=== PATIENT | male | born 1970 | race Caucasian/White ===

== ENCOUNTER 2017-11-22 09:41 | Emergency (ER) | payer OTHER ==
[2017-11-22] MEDS ORDERED: TYLENOL 325 MG PO STA (09:47)
[2017-11-22] MEDS ORDERED: Lactated Ringers 1,000 ML IV ONE ×2 (09:48→10:03)
[2017-11-22] MEDS ORDERED: DUONEB 0.5-3 MG/3 ml Neb IH ONE ×2 (09:48→10:00)
[2017-11-22] MEDS ORDERED: TYLENOL 325 MG ONE (10:03)
[2017-11-22 10:12] LABS: BASOPHIL % 0.5 % (0.0-0.4); Basophil (Absolute #) 0.04 (0-0.4); Eosinophil % 0.4 % (0.00-5.0); Eosinophil (Absolute #) 0.03 (0-0.5); Granulocyte Absolute (ANC) 5.92 (1.4-6.9); Granulocytes % 78.1 % (36.0-66.0); Hematocrit 47.4 % (42-50); Hemoglobin 15.3 gm/dl (12.5-18.0); Lymphocyte (Absolute #) 0.72 (1.0-4.6); Lymphocytes % 9.5 % (24.0-44.0); Mean Corpuscular Hemoglobin 31.9 pg (26-32); Mean Corpuscular Hgb Concent. 32.3 g/dl (32-36); Mean Platelet Volume 10.7 fl (6-9.5); Monocyte (Absolute #) 0.87 (0.0-1.3); Monocytes % 11.5 % (0.0-12.0); Platelet Count 246 K/mm3 (150-450); Red Blood Count 4.79 M/mm3 (4.1-5.6); Red Cell Distribution Width 13.5 % (11.5-14.0); White Blood Count 7.6 K/mm3 (4.0-10.5)
--- NOTE | 2017-11-22 10:31 | XRAY ---
Indication: Cough and short of breath. Comparison: January 14, 2011. PA/lateral chest remains hyperinflated and clear. Heart and mediastinal structures within normal limits. Bony thorax intact again with mild degenerative changes. Impression: Stable nonacute hyperinflated chest.
[2017-11-22 10:35] VITALS: BP 129/57
[2017-11-22 10:44] LABS: ALBUMIN 3.8 g/dL (3.4-5.0); ALKALINE PHOSPHATASE 74 U/L (46-116); ANION GAP 14.3 MEQ/L (5-15); BLOOD UREA NITROGEN 13 mg/dL (9-20); CHLORIDE 103 mEq/L (98-107); Calcium 8.9 mg/dL (8.5-10.1); Carbon Dioxide 25.8 mEq/L (21-32); Creatinine 1 1.22 mg/dl (0.55-1.30); EST GLOMERULAR FILTRATION RATE > 60 ML/MIN; Glucose 105 MG/DL (70-110); SGOT/AST 23 U/L (15-37); SGPT/ALT 34 U/L (12-78); SODIUM 139 mEq/L (136-145); Total Protein 7.1 gm/dL (6.4-8.2)
--- NOTE | 2017-11-22 11:10 | ERPHSYRPT ---
- History of Present Illness Time Seen by Provider: 11/22/17 09:43 Source: patient Patient Subjective Stated Complaint: PT REPORTS COUGH BEGINNING A FEW DAYS AGO- WORSENING WITH TIME-REPORTS ALL OVER BODY ACHES-LOW GRADE INTERMITTANT FEVER Triage Nursing Assessment: PT PINK WARM ET [id number] TO SPEAK IN COMPLETE SENTENCES-LUNGS CLEAR BILATERALLY-HARSH COUGH NOTED DURING TRIAGE WITH EPISODE OF SOB NOTED Physician History: CC: cough Hx: 47 y/o patient of Dr Tarango with cough for a few days, now fever, worsened myalgias. Headache and sore throat. No V/D. No rash. Has not taken any meds today. Healthy. Severity: moderate Allergies/Adverse Reactions: No Known Drug Allergies Allergy (Unverified 11/22/17 09:55) Hx Tetanus, Diphtheria Vaccination/Date Given: Yes Hx Influenza Vaccination/Date Given: No Hx Pneumococcal Vaccination/Date Given: No Immunizations Up to Date: No - Review of Systems Constitutional: Fever, Chills, Fatigue, Malaise, Weakness Eyes: No Symptoms Ears, Nose, & Throat: Throat Pain Respiratory: Cough, Dyspnea Cardiac: No Chest Pain Abdominal/Gastrointestinal: No Vomiting, No Diarrhea Genitourinary Symptoms: No Dysuria Musculoskeletal: Myalgias Skin: No Rash Neurological: Headache All Other Systems: Reviewed and Negative - Past Medical History Pertinent Past Medical History: No - Past Surgical History Past Surgical History: Yes Gastrointestinal: Appendectomy Musculoskeletal: Orthopedic Surgery - Social History Smoking Status: Current every day smoker How long have you smoked: YRS Exposure to second hand smoke: No Drug Use: none Patient Lives Alone: No - Nursing Vital Signs Nursing Vital Signs: Initial Vital Signs Temperature 99.4 F 11/22/17 09:45 Pulse Rate 125 H 11/22/17 09:45 Respiratory Rate 22 11/22/17 09:45 Blood Pressure 137/75 11/22/17 09:45 O2 Sat by Pulse Oximetry 96 11/22/17 09:45 Pain Scale Pain Intensity 5 - Physical Exam General Appearance: alert Eye Exam: PERRL/EOMI Ears, Nose, Throat Exam: normal ENT inspection, dry mucous membranes Neck Exam: normal inspection, non-tender, supple Respiratory Exam: diminished breath sounds, No crackles/rales Cardiovascular Exam: regular rate/rhythm, tachycardia Gastrointestinal/Abdomen Exam: soft, hernia (ventral, soft), No tenderness, No distention, No mass, No guarding Extremity Exam: normal inspection, normal range of motion Neurologic Exam: alert, oriented x 3, cooperative, sensation nml, No motor deficits Skin Exam: warm, dry, No rash SpO2 Interpretation: normal SpO2: 95 Oxygen Delivery: Room Air - Course Nursing assessment & vital signs reviewed: Yes EKG Interpreted by Me: RATE (113), Sinus Tach, Right Bundle Branch Block, Other (QTc 475) - Radiology Exams cxr X-ray Interpretation: Teleradiologist Report (stable nonacute hyperinflated chest) Ordered Tests: Active Orders 24 hr Category Date Time Status Clean Catch Urine Specimen STAT Care 11/22/17 09:46 Active EKG-ER Only STAT Care 11/22/17 09:46 Active IV Insertion STAT Care 11/22/17 09:46 Active Rectal Temperature STAT Care 11/22/17 09:47 Active CHEST 2 VIEWS (PA AND LAT) Stat Exams 11/22/17 09:47 Completed CBC W DIFF Stat Lab 11/22/17 09:56 Completed CMP Stat Lab 11/22/17 09:56 Completed Lactic Acid Stat Lab 11/22/17 09:56 Results UA W/ MICROSCOPIC Stat Lab 11/22/17 10:50 Completed Respiratory Nebulizer STAT RT 11/22/17 09:48 Completed Respiratory Nebulizer STAT RT 11/22/17 11:34 Active Medication Summary Discontinued Medications Generic Name Dose Route Start Last Admin Trade Name Freq PRN Reason Stop Dose Admin Acetaminophen 975 mg 11/22/17 09:47 11/22/17 10:10 Tylenol 325 Mg PO 11/22/17 09:48 975 mg STAT STA Administration Acetaminophen Confirm 11/22/17 10:03 Tylenol 325 Mg Administered 11/22/17 10:04 Dose 975 mg .ROUTE .STK-MED ONE Albuterol Sulfate 2.5 mg 11/22/17 11:33 Proventil 2.5 Mg/3 Ml Neb IH 11/22/17 11:34 STAT ONE Albuterol/Ipratropium 3 ml 11/22/17 09:48 11/22/17 10:03 Duoneb 0.5-3 Mg/3 Ml Neb IH 11/22/17 09:49 3 ml STAT ONE Administration Albuterol/Ipratropium Confirm 11/22/17 10:00 Duoneb 0.5-3 Mg/3 Ml Neb Administered 11/22/17 10:01 Dose 3 ml IH .STK-MED ONE Lactated Ringer's 1,000 mls @ 999 mls/hr 11/22/17 09:48 11/22/17 10:10 Lactated Ringers IV 11/22/17 10:48 999 mls/hr .Q1H1M ONE Administration Lactated Ringer's Confirm 11/22/17 10:03 Lactated Ringers Administered 11/22/17 10:04 Dose 1,000 mls @ ud IV .STK-MED ONE Lab/Rad Data: Laboratory Result Diagrams 11/22/17 09:56 11/22/17 09:56 Laboratory Results 11/22/17 11/22/17 11/22/17 Range/Units 10:50 09:56 09:56 WBC (4.0-10.5) K/mm3 RBC (4.1-5.6) M/mm3 Hgb (12.5-18.0) gm/dl Hct (42-50) % MCV (78-100) fl MCH (26-32) pg MCHC (32-36) g/dl RDW (11.5-14.0) % Plt Count (150-450) K/mm3 MPV (6-9.5) fl Gran % (36.0-66.0) % Lymphocytes % (24.0-44.0) % Monocytes % (0.0-12.0) % Eosinophils % (0.00-5.0) % Basophils % (0.0-0.4) % Basophils # (0-0.4) Sodium 139 (136-145) mEq/L Potassium 4.0 (3.5-5.1) mEq/L Chloride 103 (98-107) mEq/L Carbon Dioxide 25.8 (21-32) mEq/L Anion Gap 14.3 (5-15) MEQ/L BUN 13 (9-20) mg/dL Creatinine 1.22 (0.55-1.30) mg/dl Estimated GFR > 60 ML/MIN Glucose 105 (70-110) MG/DL Lactic Acid 2.0 (0.4-2.0) Calcium 8.9 (8.5-10.1) mg/dL Total Bilirubin 0.50 (0.2-1.0) mg/dL AST 23 (15-37) U/L ALT 34 (12-78) U/L Alkaline Phosphatase 74 (46-116) U/L Serum Total Protein 7.1 (6.4-8.2) gm/dL Albumin 3.8 (3.4-5.0) g/dL Ur Collection Type VOID Urine Color LUCIA (YELLOW) Urine Appearance CLOUDY (CLEAR) Urine pH 6.0 (5-6) Ur Specific [place] 1.020 (1.005-1.025) Urine Protein TRACE (Negative) Urine Ketones TRACE (NEGATIVE) Urine Blood NEGATIVE (0-5) Mart/ul Urine Nitrite NEGATIVE (NEGATIVE) Urine Bilirubin NEGATIVE (NEGATIVE) Urine Urobilinogen 1 (0-1) mg/dL Ur Leukocyte Esterase NEGATIVE (NEGATIVE) Urine Microscopic WBC 0-2 (0-5) /HPF Amorphous Crystals MANY (NEGATIVE) /HPF Urine Culture Reflexed NO (NO) Urine Glucose NEGATIVE (NEGATIVE) mg/dL Influenza Type A Ag (NEGATIVE) Influenza Type B Ag (NEGATIVE) RSV (PCR) (Negative) Specimen Received 11/22/17 1050 11/22/17 11/22/17 Range/Units 09:56 09:56 WBC 7.6 (4.0-10.5) K/mm3 RBC 4.79 (4.1-5.6) M/mm3 Hgb 15.3 (12.5-18.0) gm/dl Hct 47.4 (42-50) % MCV 99.0 (78-100) fl MCH 31.9 (26-32) pg MCHC 32.3 (32-36) g/dl RDW 13.5 (11.5-14.0) % Plt Count 246 (150-450) K/mm3 MPV 10.7 H (6-9.5) fl Gran % 78.1 H (36.0-66.0) % Lymphocytes % 9.5 L (24.0-44.0) % Monocytes % 11.5 (0.0-12.0) % Eosinophils % 0.4 (0.00-5.0) % Basophils % 0.5 (0.0-0.4) % Basophils # 0.04 (0-0.4) Sodium (136-145) mEq/L Potassium (3.5-5.1) mEq/L Chloride (98-107) mEq/L Carbon Dioxide (21-32) mEq/L Anion Gap (5-15) MEQ/L BUN (9-20) mg/dL Creatinine (0.55-1.30) mg/dl Estimated GFR ML/MIN Glucose (70-110) MG/DL Lactic Acid (0.4-2.0) Calcium (8.5-10.1) mg/dL Total Bilirubin (0.2-1.0) mg/dL AST (15-37) U/L ALT (12-78) U/L Alkaline Phosphatase (46-116) U/L Serum Total Protein (6.4-8.2) gm/dL Albumin (3.4-5.0) g/dL Ur Collection Type Urine Color (YELLOW) Urine Appearance (CLEAR) Urine pH (5-6) Ur Specific [place] (1.005-1.025) Urine Protein (Negative) Urine Ketones (NEGATIVE) Urine Blood (0-5) Mart/ul Urine Nitrite (NEGATIVE) Urine Bilirubin (NEGATIVE) Urine Urobilinogen (0-1) mg/dL Ur Leukocyte Esterase (NEGATIVE) Urine Microscopic WBC (0-5) /HPF Amorphous Crystals (NEGATIVE) /HPF Urine Culture Reflexed (NO) Urine Glucose (NEGATIVE) mg/dL Influenza Type A Ag POSITIVE (NEGATIVE) Influenza Type B Ag NEGATIVE (NEGATIVE) RSV (PCR) NEGATIVE (Negative) Specimen Received - Progress Progress Note: 11/22/17 11:35 FLU A positive. HR better. Breathing better. No sign of pneumonia or meningitis. Will release with symptom Rx. He chose tamiflu after discussion. Counseled pt/family regarding: lab results, diagnosis, need for follow-up, rad results - Departure Time of Disposition: 11:36 Departure Disposition: Home Clinical Impression: Influenza A Condition: Stable Critical Care Time: No Referrals: ADELINA TARANGO MD [Primary Care Provider] - Instructions: How to Use a Spacer, Flu, Adult (DC) Additional Instructions: UPPER RESPIRATORY INFECTIONS 1. The signs and symptoms of a cold may last up to 10 days. These illnesses are due to viruses which are not treatable with antibiotics. 2. The following suggestions can aid in recovery and to minimize symptoms: A. Increase fluid intake. B. Acetaminophen or Ibuprofen as directed. C. Avoid smoking environments as this will increase the risk of developing pneumonia. D. For children, may use a cool mist vaporizer in the child's room. 3. Contact your Family Physician if you note: A. Persisten fever >103 for more than 3 days B. Breathing difficulty C. Productive cough of yellow/green sputum D. Illness greater than 7 days E. Persistent vomiting F. Stiff neck Rx tamiflu. Rx albuterol MDI. Return for problems or concerns. Self home isolation and no work until fever free for 24 hours and improved. Prescriptions: Albuterol Sulfate [Albuterol Sulfate Hfa] 2 puff IH Q4-6HPRN PRN #1 [id number] PRN Reason: cough or wheeze Oseltamivir 75 mg [Tamiflu 75MG Capsule] 75 mg PO BID #10 cap
[2017-11-22 11:11] LABS: INFLUENZA A POSITIVE (NEGATIVE); INFLUENZA B NEGATIVE (NEGATIVE); RESPIRATORY SYNCTIAL VIRUS NEGATIVE (Negative)
[2017-11-22 11:12] LABS: Appearance CLOUDY (CLEAR); Leukocyte Esterase NEGATIVE (NEGATIVE); Nitrite NEGATIVE (NEGATIVE)
[2017-11-22 11:13] LABS: Bilirubin NEGATIVE (NEGATIVE); Blood NEGATIVE Ery/ul (0-5); Glucose NEGATIVE (NEGATIVE); Ketones TRACE (NEGATIVE); Protein,Urine Dip TRACE (Negative); Urobilinogen 1 mg/dL (0-1)
[2017-11-22 11:14] LABS: Amourphous Crystal MANY /HPF (NEGATIVE); WBC 0-2 /HPF (0-5)
[2017-11-22] MEDS ORDERED: PROVENTIL 2.5 MG/3 ML NEB IH ONE ×2 (11:33→11:36)
[2017-11-22 11:45] VITALS: PULSE 99; O2SAT 96
== END 2017-11-22 12:03 | disposition home or self-care (01) ==
LOC: ED 09:41
DX: J11.1 Influenza due to unidentified influenza virus with other respiratory manifestations (principal); R05 Cough; R50.9 Fever, unspecified; M79.1 Myalgia; R51 Headache; J02.9 Acute pharyngitis, unspecified; R53.83 Other fatigue
CPT/HCPCS: 36000; 36415; 71046; 80053; 81000; 83605; 85025; 87631; 93005; 94640; 96360; 99284; A9270-GY

== ENCOUNTER 2020-03-28 08:38 | Emergency (ER) | payer BC ==
[2020-03-28 08:55] VITALS: O2SAT 96
--- NOTE | 2020-03-28 08:55 | ERPHSYRPT ---
- History of Present Illness Time Seen by Provider: 03/28/20 08:54 Source: patient Exam Limitations: no limitations Physician History: 50 years old male presented in the ER with chief complaint of low back pain sudden onset after twisting/exertion while lawnmowing 2 days ago which was getting better, woke up this morning and lifted a 40 pound heavy box and pain came back, moderate to severe intensity, sharp shooting in nature, low back in the sacroiliac area with radiation to both buttocks, aggravated with movements/ ambulation and partial relief with being still. Denies any loss of bowel or bladder control. Denies any numbness tingling weakness of lower extremity. No perineal numbness. Patient also reports similar pain in the past with lifting and twisting. Timing/Duration: day(s) (2), intermittent, worse Method of Injury: lifting, twisted Quality: radiating, sharp Back Pain Location: lumbar spine, paraspinous muscles Back Pain Radiation: buttocks Severity of Pain-Max: severe Severity of Pain-Current: severe Modifying Factors: Improves With: immobilization, movement Associated Symptoms: denies symptoms Previous symptoms: same symptoms as today Allergies/Adverse Reactions: No Known Drug Allergies Allergy (Verified 03/28/20 08:55) Home Medications: Budesonide/Formoterol Fumarate [Budesonide-Formoterol 80-4.5] 1 inh PO UD PRN [History] Lisinopril/Hydrochlorothiazide [Lisinopril-Hctz 10-12.5 mg Tab] 1 each PO DAILY 03/28/20 [History] PANTOPRAZOLE 40 mg Tablet [Protonix 40MG Tablet] 40 mg PO QPM 03/28/20 [ History] Hx Tetanus, Diphtheria Vaccination/Date Given: Yes Hx Influenza Vaccination/Date Given: No Hx Pneumococcal Vaccination/Date Given: No Travel Risk - International Travel Have you traveled outside of the country in past 3 weeks: No Have you or anyone close to you been diagnosed with or: No Do your reside in a community with a known COVID-19 case?: Yes If Yes where:: [facility] - Review of Systems Constitutional: No Symptoms Eyes: No Symptoms Ears, Nose, & Throat: No Symptoms Respiratory: No Symptoms Cardiac: No Symptoms Abdominal/Gastrointestinal: No Symptoms Genitourinary Symptoms: No Symptoms Musculoskeletal: Back Pain Skin: No Symptoms Neurological: No Symptoms Psychological: No Symptoms Endocrine: No Symptoms Hematologic/Lymphatic: No Symptoms - Past Medical History Pertinent Past Medical History: No - Past Surgical History Past Surgical History: Yes Gastrointestinal: Appendectomy Musculoskeletal: Orthopedic Surgery - Social History Smoking Status: Current every day smoker How long have you smoked: YRS Exposure to second hand smoke: No Drug Use: none Patient Lives Alone: No - Nursing Vital Signs Nursing Vital Signs: Initial Vital Signs Temperature 98.1 F 03/28/20 08:45 Pulse Rate 84 03/28/20 08:45 Blood Pressure 119/79 03/28/20 08:45 O2 Sat by Pulse Oximetry 96 03/28/20 08:45 Pain Scale Pain Intensity [Lower 10 Posterior Distal Back] Pain Intensity 6 - Physical Exam General Appearance: mild distress, alert Eye Exam: eyes nml inspection Ears, Nose, Throat Exam: normal ENT inspection, pharynx normal Neck Exam: normal inspection, supple, full range of motion Respiratory Exam: normal breath sounds, lungs clear Cardiovascular Exam: regular rate/rhythm, normal heart sounds Gastrointestinal Exam: soft Back Exam: normal inspection, decreased range of motion, muscle spasm, other ( Tenderness in sacroiliac area with bilateral muscle spasm and tenderness. No significant lumbar tenderness. Straight leg raising test positive bilaterally at 60 degrees. No perineal numbness. Negative neuro exam in lower extremities. ), No CVA tenderness Extremity Exam: normal inspection, normal range of motion, pelvis stable Neurologic Exam: alert, oriented x 3, cooperative Skin Exam: normal color SpO2 Interpretation: normal O2 Delivery: Room Air - Course Nursing assessment & vital signs reviewed: Yes Ordered Tests: Medication Summary Discontinued Medications Generic Name Dose Route Start Last Admin Trade Name Freq PRN Reason Stop Dose Admin Ketorolac Tromethamine 30 mg 03/28/20 08:59 03/28/20 09:05 Toradol 30 Mg Injection IM 03/28/20 09:00 30 mg STAT ONE Administration Ketorolac Tromethamine Confirm 03/28/20 09:03 Toradol 30 Mg Injection Administered 03/28/20 09:04 Dose 30 mg .ROUTE .STK-MED ONE Orphenadrine Citrate 60 mg 03/28/20 08:59 03/28/20 09:05 Norflex 60 Mg/2 Ml IM 03/28/20 09:00 60 mg STAT ONE Administration Orphenadrine Citrate Confirm 03/28/20 09:03 Norflex 60 Mg/2 Ml Administered 03/28/20 09:04 Dose 60 mg .ROUTE .STK-MED ONE - Progress Progress: improved, pain not gone completely, re-examined Progress Note: Patient has low back pain which started 2 days ago, improved and came back after lifting heavy box prior to arrival. No cauda equina symptoms, negative neuro exam in lower extremities. Nose point tenderness in the midline but more on the paraspinal area and sacroiliac area bilaterally. He is given Toradol and Norflex, on reevaluation feeling better. We will continue with muscle relaxants and NSAIDs to go home. Recommended outpatient follow-up. At this point I do not think he needs any imaging or further work-up and is stable for discharge with outpatient follow-up. 03/28/20 09:40 Counseled pt/family regarding: diagnosis, need for follow-up - Departure Departure Disposition: Home Clinical Impression: Low back strain Qualifiers: Encounter type: initial encounter Qualified Code(s): S39.012A - Strain of muscle, fascia and tendon of lower back, initial encounter Condition: Stable Critical Care Time: No Referrals: ADELINA TARANGO MD [Primary Care Provider] - (1 to 2 days for reevaluation) Instructions: Low Back Pain (DC) Additional Instructions: Take ibuprofen/Tylenol as needed along with muscle relaxants. Follow-up with primary care physician for reevaluation. Return to ER for worsening pain, numbness tingling weakness of lower extremities, loss of bowel or bladder control, perineal numbness etc. Avoid exertional activities Prescriptions: Ibuprofen 600 mg PO Q6HPRN PRN 10 Days #30 tablet PRN Reason: Pain Cyclobenzaprine HCl [Flexeril] 10 mg PO TID PRN #20 tablet PRN Reason: Muscle Spasms
[2020-03-28] MEDS ORDERED: Norflex 60 MG/2 ML IM ONE (08:59)
[2020-03-28] MEDS ORDERED: TORAdol 30 mg Injection IM ONE (08:59)
[2020-03-28] MEDS ORDERED: Norflex 60 MG/2 ML ONE (09:03)
[2020-03-28] MEDS ORDERED: TORAdol 30 mg Injection ONE (09:03)
[2020-03-28 09:45] VITALS: BP 121/71; PULSE 81
== END 2020-03-28 09:54 | disposition home or self-care (01) ==
LOC: ED 08:38
DX: S39.012A Strain of muscle, fascia and tendon of lower back, initial encounter (principal); Z79.899 Other long term (current) drug therapy; Z72.0 Tobacco use
CPT/HCPCS: 96372; 99284; J1885; J2360

== ENCOUNTER 2022-05-16 19:43 | Emergency (ER) | payer BC ==
--- NOTE | 2022-05-16 19:48 | ERPHSYRPT ---
- History of Present Illness Time Seen by Provider: 05/16/22 19:48 Source: patient, family Exam Limitations: no limitations Physician History: This is a 52-year-old obese white male with a history of hypertension and gastroesophageal reflux disease who presents with depression, anxiety and worsening stress issues. In the last month the patient has been thinking about suicide. Symptoms are worsening and today they were at its worst. Patient did not attempt physical suicide but he is thinking about more often and is becoming real to him. Patient does not have a specific plan. Patient is not homicidal. Patient does not have a headache. He has no chest pain. He has no shortness of breath. He denies consumption of alcohol, illicit drugs or any excess ingestion of prescription medication. He is not short of breath. He has no fever, no nausea vomiting or diarrhea. Patient did have an episode of suicidal ideation approximately 10 years ago and he was admitted to [facility] for evaluation and management. Timing/Duration: intermittent, worse, other (Symptoms recurred approximately 1 month ago and the symptoms of depression and anxiety and stress are worsening) Severity of Symptoms-Max: moderate Severity of Symptoms-Current: moderate Context related to: living circumstances Suicidal thoughts: other (Patient did not attempt suicide. He does not have a specific plan) Associated Symptoms: anxiety, depressed, other (Stress) Previous symptoms: same symptoms as today (Approximately 10 years ago patient was admitted for inpatient psychiatric evaluation and therapy) Allergies/Adverse Reactions: No Known Drug Allergies Allergy (Verified 05/16/22 20:24) Home Medications: PANTOPRAZOLE 40 mg Tablet [Protonix 40MG Tablet] 40 mg PO DAILY 03/28/20 [History] Fluticasone/Salmeterol [Advair 100-50 Diskus] 1 each IH DAILY 05/16/22 [History] Levothyroxine Sodium [Euthyrox] 50 mcg PO DAILY 05/16/22 [History] Lisinopril/Hydrochlorothiazide [Lisinopril-Hctz 20-12.5 mg Tab] 1 tab PO DAILY 05/16/22 [History] Metformin HCl 500 mg [Glucophage 500 MG] 1 tab PO BID 05/16/22 [History] Topiramate [Topiramate ER] 200 mg PO BID 05/16/22 [History] Hx Tetanus, Diphtheria Vaccination/Date Given: Yes Hx Influenza Vaccination/Date Given: No Hx Pneumococcal Vaccination/Date Given: No Travel Risk - International Travel Have you traveled outside of the country in past 3 weeks: No - Coronavirus Screening Are you exhibiting any of the following symptoms?: No Close contact with a COVID-19 positive Pt in past 14-21 Days: No - Past Medical History Pertinent Past Medical History: No Cardiac History: Hypertension - Past Surgical History Past Surgical History: Yes Gastrointestinal: Appendectomy Musculoskeletal: Orthopedic Surgery - Social History Smoking Status: Current every day smoker How long have you smoked: YRS Exposure to second hand smoke: No Drug Use: none Patient Lives Alone: No - Review of Systems Constitutional: No Symptoms Eyes: No Symptoms Ears, Nose, & Throat: No Symptoms Respiratory: No Symptoms Cardiac: No Symptoms Abdominal/Gastrointestinal: No Symptoms Genitourinary Symptoms: No Symptoms Musculoskeletal: No Symptoms Skin: No Symptoms Neurological: No Symptoms Psychological: Anxiety, Depression, Suicidal Ideations, No Alcohol Abuse, No Drug Abuse, No Homicidal Ideations, No Emotional Lability, No Hallucinations Endocrine: No Symptoms Hematologic/Lymphatic: No Symptoms Immunological/Allergic: No Symptoms All Other Systems: Reviewed and Negative - Nursing Vital Signs Nursing Vital Signs: Initial Vital Signs Temperature 97.5 F 05/16/22 19:52 Pulse Rate 96 H 05/16/22 19:52 Respiratory Rate 22 05/16/22 19:52 Blood Pressure 90/59 05/16/22 19:52 O2 Sat by Pulse Oximetry 97 05/16/22 19:52 Pain Scale Pain Intensity 0 - Physical Exam General Appearance: no apparent distress, alert, anxiety, other Eyes, Ears, Nose, Throat Exam: normal ENT inspection (Depressed), moist mucous membranes Neck Exam: normal inspection, non-tender, supple, full range of motion Respiratory Exam: normal breath sounds, lungs clear, airway intact, No chest tenderness, No respiratory distress Cardiovascular Exam: regular rate/rhythm, normal heart sounds, normal peripheral pulses Gastrointestinal/Abdominal Exam: soft, normal bowel sounds, No tenderness Extremities Exam: normal inspection, normal range of motion, No evidence of injury Current Suicidality: denies suicide plan Neurological Exam: alert, normal mood/affect, calm, 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, oriented x 3, anxious, depressed affect Appearance: appropriate appearance, appropriate insight, neat, no memory impairment Behavior/Eye Contact/Speech: alert & cooperative, good eye contact, normal speech Skin Exam: normal color, warm, dry SpO2 Interpretation: normal O2 Delivery: Room Air - Course Nursing assessment & vital signs reviewed: Yes Ordered Tests: Active Orders 24 hr Category Date Time Status EKG-ER Only STAT Care 05/16/22 19:50 Active ACETAMINOPHEN Stat Lab 05/16/22 20:07 Completed CBC W DIFF Stat Lab 05/16/22 20:07 Completed CMP Stat Lab 05/16/22 20:07 Completed ETHYL ALCOHOL Stat Lab 05/16/22 20:07 Completed SALICYLATE Stat Lab 05/16/22 20:07 Completed UA W/RFX CULTURE Stat Lab 05/16/22 20:23 Completed Urine Triage Profile Stat Lab 05/16/22 20:23 Completed Lab/Rad Data: Laboratory Result Diagrams 05/16/22 20:07 05/16/22 20:07 Laboratory Results 05/16/22 05/16/22 05/16/22 Range/Units 20:30 20:23 20:23 WBC (4.0-10.5) x10^3/uL RBC (4.1-5.6) x10^6/uL Hgb (12.5-18.0) g/dL Hct (42-50) % MCV (78-100) fL MCH (26-32) pg MCHC (32-36) g/dL RDW (11.5-14.0) % Plt Count (150-450) x10^3/uL MPV (7.5-11.0) fL Gran % (36.0-66.0) % Immature Gran % (Auto) (0.00-0.4) % Nucleat RBC Rel Count (0.00-0.1) % Eos # (Auto) (0-0.5) x10^3/uL Immature Gran # (Auto) (0.00-0.03) x10^3u/L Absolute Lymphs (auto) (1.0-4.6) x10^3/uL Absolute Monos (auto) (0.0-1.3) x10^3/uL Absolute Nucleated RBC (0.00-0.01) x10^3u/L Lymphocytes % (24.0-44.0) % Monocytes % (0.0-12.0) % Eosinophils % (0.00-5.0) % Basophils % (0.0-0.4) % Absolute Granulocytes (1.4-6.9) x10^3/uL Basophils # (0-0.4) x10^3/uL Sodium (137-145) mmol/L Potassium (3.5-5.1) mmol/L Chloride (98-107) mmol/L Carbon Dioxide (22-30) mmol/L Anion Gap (5-15) MEQ/L BUN (9-20) mg/dL Creatinine (0.66-1.25) mg/dL Estimated GFR ML/MIN Glucose (74-106) mg/dL Calcium (8.4-10.2) mg/dL Total Bilirubin (0.2-1.3) mg/dL AST (17-59) U/L ALT (0-50) U/L Alkaline Phosphatase (38-126) U/L Serum Total Protein (6.3-8.2) g/dL Albumin (3.5-5.0) g/dL Urinalys Dipstick Clnc MAIN LAB Urine Color YELLOW (YELLOW) Urine Appearance CLEAR (CLEAR) Urine pH 6.0 (5-6) Ur Specific [place] 1.010 (1.005-1.025) POC Urine Protein Conf NEGATIVE (Negative) Urine Ketones NEGATIVE (NEGATIVE) Urine Nitrite NEGATIVE (NEGATIVE) Urine Bilirubin NEGATIVE (NEGATIVE) Urine Urobilinogen 0.2 (0-1) mg/dL Urine Leukocytes SMALL (NEGATIVE) Urine WBC (Auto) 3-5 (0-5) /HPF Urine RBC (Auto) NONE (0-2) /HPF Urine RBC NEGATIVE (0-5) Mart/ul Ur Culture Indicated? NO Urine Glucose NEGATIVE (NEGATIVE) mg/dL Salicylates (2-20) mg/dL Urine Opiates Level NEGATIVE (NEGATIVE) Ur Methadone NEGATIVE (NEGATIVE) Acetaminophen (10-30) ug/ml Urine Barbiturates NEGATIVE (NEGATIVE) Ur Phencyclidine (PCP) NEGATIVE (NEGATIVE) Urine Amphetamine NEGATIVE (NEGATIVE) U Benzodiazepine Level NEGATIVE (NEGATIVE) Urine Cocaine NEGATIVE (NEGATIVE) Urine Marijuana (THC) NEGATIVE (NEGATIVE) Ethyl Alcohol (0-10) mg/dL Influenza Type A Ag NEGATIVE (NEGATIVE) Influenza Type B Ag NEGATIVE (NEGATIVE) RSV (PCR) NEGATIVE (Negative) SARS-CoV-2 (PCR) NEGATIVE (NEGATIVE) 05/16/22 05/16/22 Range/Units 20:07 20:07 WBC 12.3 H (4.0-10.5) x10^3/uL RBC 3.90 L (4.1-5.6) x10^6/uL Hgb 12.7 (12.5-18.0) g/dL Hct 38.5 L (42-50) % MCV 98.7 (78-100) fL MCH 32.6 H (26-32) pg MCHC 33.0 (32-36) g/dL RDW 13.2 (11.5-14.0) % Plt Count 367 (150-450) x10^3/uL MPV 9.8 (7.5-11.0) fL Gran % 69.8 H (36.0-66.0) % Immature Gran % (Auto) 0.3 (0.00-0.4) % Nucleat RBC Rel Count 0.0 (0.00-0.1) % Eos # (Auto) 0.42 (0-0.5) x10^3/uL Immature Gran # (Auto) 0.04 H (0.00-0.03) x10^3u/L Absolute Lymphs (auto) 2.19 (1.0-4.6) x10^3/uL Absolute Monos (auto) 0.99 (0.0-1.3) x10^3/uL Absolute Nucleated RBC 0.00 (0.00-0.01) x10^3u/L Lymphocytes % 17.8 L (24.0-44.0) % Monocytes % 8.0 (0.0-12.0) % Eosinophils % 3.4 (0.00-5.0) % Basophils % 0.7 (0.0-0.4) % Absolute Granulocytes 8.59 H (1.4-6.9) x10^3/uL Basophils # 0.09 (0-0.4) x10^3/uL Sodium 129 L (137-145) mmol/L Potassium 5.2 H (3.5-5.1) mmol/L Chloride 102 (98-107) mmol/L Carbon Dioxide 18 L (22-30) mmol/L Anion Gap 14.8 (5-15) MEQ/L BUN 27 H (9-20) mg/dL Creatinine 1.88 H (0.66-1.25) mg/dL Estimated GFR 39.9 ML/MIN Glucose 109 H (74-106) mg/dL Calcium 9.4 (8.4-10.2) mg/dL Total Bilirubin 0.30 (0.2-1.3) mg/dL AST 19 (17-59) U/L ALT 26 (0-50) U/L Alkaline Phosphatase 76 (38-126) U/L Serum Total Protein 6.9 (6.3-8.2) g/dL Albumin 3.9 (3.5-5.0) g/dL Urinalys Dipstick Clnc Urine Color (YELLOW) Urine Appearance (CLEAR) Urine pH (5-6) Ur Specific [place] (1.005-1.025) POC Urine Protein Conf (Negative) Urine Ketones (NEGATIVE) Urine Nitrite (NEGATIVE) Urine Bilirubin (NEGATIVE) Urine Urobilinogen (0-1) mg/dL Urine Leukocytes (NEGATIVE) Urine WBC (Auto) (0-5) /HPF Urine RBC (Auto) (0-2) /HPF Urine RBC (0-5) Mart/ul Ur Culture Indicated? Urine Glucose (NEGATIVE) mg/dL Salicylates < 1.0 L (2-20) mg/dL Urine Opiates Level (NEGATIVE) Ur Methadone (NEGATIVE) Acetaminophen < 10 L (10-30) ug/ml Urine Barbiturates (NEGATIVE) Ur Phencyclidine (PCP) (NEGATIVE) Urine Amphetamine (NEGATIVE) U Benzodiazepine Level (NEGATIVE) Urine Cocaine (NEGATIVE) Urine Marijuana (THC) (NEGATIVE) Ethyl Alcohol < 10 (0-10) mg/dL Influenza Type A Ag (NEGATIVE) Influenza Type B Ag (NEGATIVE) RSV (PCR) (Negative) SARS-CoV-2 (PCR) (NEGATIVE) - Progress Progress: unchanged, re-examined Progress Note: 05/17/22 01:50 Patient has been accepted to [facility] after the patient was staffed with mental health worker and Dr. Antoine Counseled pt/family regarding: lab results, diagnosis, need for follow-up - Departure Departure Disposition: Transfer Clinical Impression: Suicidal ideation, Depression, Anxiety, Stress Condition: Stable Critical Care Time: No Referrals: ADELINA TARANGO MD [Primary Care Provider] - Follow up/PCP as directed
[2022-05-16 20:11] LABS: Absolute Neutrophil Ct (ANC) 8.59 x10^3/uL (1.4-6.9); Basophil (Absolute #) 0.09 x10^3/uL (0-0.4); Eosinophil % 3.4 % (0.00-5.0); Eosinophil (Absolute #) 0.42 x10^3/uL (0-0.5); Hematocrit 38.5 % (42-50); Hemoglobin 12.7 g/dL (12.5-18.0); Lymphocyte (Absolute #) 2.19 x10^3/uL (1.0-4.6); Lymphocytes % 17.8 % (24.0-44.0); Mean Cell Volume 98.7 fL (78-100); Mean Corpuscular Hemoglobin 32.6 pg (26-32); Mean Platelet Volume 9.8 fL (7.5-11.0); Monocyte (Absolute #) 0.99 x10^3/uL (0.0-1.3); Neutrophil % 69.8 % (36.0-66.0); Platelet Count 367 x10^3/uL (150-450); Red Cell Distribution Width 13.2 % (11.5-14.0); White Blood Count 12.3 x10^3/uL (4.0-10.5)
[2022-05-16 20:34] LABS: ACETAMINOPHEN < 10 ug/ml (10-30); ALBUMIN 3.9 g/dL (3.5-5.0); ALKALINE PHOSPHATASE 76 U/L (38-126); ANION GAP 14.8 MEQ/L (5-15); BLOOD UREA NITROGEN 27 mg/dL (9-20); CHLORIDE 102 mmol/L (98-107); Calcium 9.4 mg/dL (8.4-10.2); Carbon Dioxide 18 mmol/L (22-30); Creatinine 1 1.88 mg/dL (0.66-1.25); EST GLOMERULAR FILTRATION RATE 39.9 ML/MIN; ETHYL ALCOHOL < 10 mg/dL (0-10); Glucose 109 mg/dL (74-106); Potassium 5.2 mmol/L (3.5-5.1); SALICYLATE < 1.0 mg/dL (2-20); SGOT/AST 19 U/L (17-59); SGPT/ALT 26 U/L (0-50); SODIUM 129 mmol/L (137-145); Total Protein 6.9 g/dL (6.3-8.2)
[2022-05-16 20:36] LABS: Appearance CLEAR (CLEAR); Bilirubin NEGATIVE (NEGATIVE); Glucose NEGATIVE (NEGATIVE); Ketones NEGATIVE (NEGATIVE); Nitrite NEGATIVE (NEGATIVE); Protein,Urine Dip NEGATIVE (Negative); RBC NEGATIVE Ery/ul (0-5); Urine Cultured Indicated? NO; Urobilinogen 0.2 mg/dL (0-1)
[2022-05-16 20:37] LABS: Dipstick done @ ? MAIN LAB
[2022-05-16 20:50] LABS: Amphetamine,Urine NEGATIVE (NEGATIVE); Barbiturate,Urine NEGATIVE (NEGATIVE); Benzodiazepine,Urine NEGATIVE (NEGATIVE); Cocaine,Urine NEGATIVE (NEGATIVE); Methadone,Urine NEGATIVE (NEGATIVE); Opiate,Urine NEGATIVE (NEGATIVE); PCP,Urine NEGATIVE (NEGATIVE); THC,Urine NEGATIVE (NEGATIVE)
[2022-05-16 21:09] LABS: INFLUENZA A NEGATIVE (NEGATIVE); INFLUENZA B NEGATIVE (NEGATIVE); RESPIRATORY SYNCTIAL VIRUS NEGATIVE (Negative); SARS-CoV-2 Xpert Express NEGATIVE (NEGATIVE)
[2022-05-17 03:06] VITALS: O2SAT 98
[2022-05-17 04:18] VITALS: BP 93/55; PULSE 88
== END 2022-05-17 04:17 ==
LOC: ED 19:43
DX: R45.851 Suicidal ideations (principal); F32.A Depression, unspecified; F41.9 Anxiety disorder, unspecified; Z73.3 Stress, not elsewhere classified; I10 Essential (primary) hypertension; Z72.0 Tobacco use; Z79.899 Other long term (current) drug therapy
CPT/HCPCS: 0241U; 36415; 80053; 80307; 81015; 85025; 93005; 99284; G0480

== ENCOUNTER 2024-12-01 08:58 | Emergency (ER) | payer BC ==
[2024-12-01 09:11] VITALS: TEMP 98.8
--- NOTE | 2024-12-01 09:18 | ERPHSYRPT ---
- History of Present Illness Time Seen by Provider: 12/01/24 09:18 Source: patient, family Exam Limitations: no limitations Patient Subjective Stated Complaint: SOB Triage Nursing Assessment: Patient ambulated back to ED and transferred self to bed. Patient A+O X3. Patient's skin pink, warm and dry. Patient complains of increased SOB since Saturday with non productive cough and body aches. Patient states he has pain to left side of ribs only when coughing. Lungs noted to sound wheezing and course throughout. Physician History: This is an obese 54-year-old white male patient who has multiple medical problems including hypertension, diabetes, hypothyroidism, COPD, gastroesophageal reflux disease and anxiety has a tendency to get bronchitis and pneumonia and presents with 2-day history of nonproductive cough, wheezing, shortness of breath and bodyaches. He is a daily smoker of cigarettes. He denies chest pain Timing/Duration: day(s) (2), worse Severity of Dyspnea-Max: mild Severity of Dyspnea-Current: mild Possible Cause: occasional episodes Modifying Factors: Improves With: coughing Associated Symptoms: cough, wheezing, No chest pain/discomfort, No hemoptysis, No calf pain, No painful breathing, No productive cough Allergies/Adverse Reactions: No Known Drug Allergies Allergy (Verified 12/01/24 09:02) Home Medications: PANTOPRAZOLE 40 mg Tablet [Protonix 40MG Tablet] 40 mg PO DAILY 03/28/20 [History] Fluticasone Propion/Salmeterol [Advair 100-50 Diskus] 1 each IH DAILY 05/16/22 [History] Levothyroxine Sodium [Euthyrox] 50 mcg PO DAILY 05/16/22 [History] Lisinopril/Hydrochlorothiazide [Lisinopril-Hctz 20-12.5 mg Tab] 1 tab PO DAILY 05/16/22 [History] Metformin HCl 500 mg [Glucophage 500 MG] 1 tab PO BID 05/16/22 [History] Topiramate [Topiramate ER] 200 mg PO BID 05/16/22 [History] Hx Tetanus, Diphtheria Vaccination/Date Given: Yes Hx Influenza Vaccination/Date Given: Yes Hx Pneumococcal Vaccination/Date Given: Yes Immunizations Up to Date: Yes Travel Risk - International Travel Have you traveled outside of the country in past 3 weeks: No - Emerging Infectious Disease Are you exhibiting symptoms associated with any current EIDs: Yes Symptoms: Cough: New Onset, Shortness of Breath - Review of Systems Constitutional: No Symptoms Eyes: No Symptoms Ears, Nose, & Throat: No Symptoms Respiratory: Cough, Wheezing Cardiac: No Symptoms Abdominal/Gastrointestinal: No Symptoms Genitourinary Symptoms: No Symptoms Musculoskeletal: No Symptoms Skin: No Symptoms Neurological: No Symptoms Psychological: No Symptoms Hematologic/Lymphatic: No Symptoms Immunological/Allergic: No Symptoms All Other Systems: Reviewed and Negative - Past Medical History Pertinent Past Medical History: Yes Neurological History: No Pertinent History ENT History: No Pertinent History Cardiac History: Hypertension Respiratory History: COPD Endocrine Medical History: Diabetes Type II, Hypothyroidism Musculoskeletal History: No Pertinent History GI Medical History: GERD History: No Pertinent History Psycho-Social History: Anxiety, Depression Male Reproductive Disorders: No Pertinent History - Past Surgical History Past Surgical History: Yes Neuro Surgical History: No Pertinent History Cardiac: No Pertinent History Respiratory: No Pertinent History Gastrointestinal: Appendectomy Genitourinary: No Pertinent History Musculoskeletal: Orthopedic Surgery Male Surgical History: No Pertinent History Other Surgical History: plate under left eye - Social History Smoking Status: Current every day smoker How long have you smoked: YRS Exposure to second hand smoke: Yes Drug Use: none Patient Lives Alone: No - Social Determinants of Health Will the patient participate in the screening: Yes Do you worry about a steady place to live?: No Do you have any problems with any of the following?: No known problems In the past 12 months,have you had to go without utilities?: No Transportation Issues: No Has anyone in your support network made you feel unsafe?: No Have you or anyone in your house had to go without enough: No - Nursing Vital Signs Nursing Vital Signs: Initial Vital Signs Pulse Rate 95 H 12/01/24 09:03 Respiratory Rate 12 12/01/24 09:03 Blood Pressure 132/77 12/01/24 09:03 O2 Sat by Pulse Oximetry 95 12/01/24 09:03 Pain Scale Pain Intensity 0 - Physical Exam General Appearance: no apparent distress, alert, anxiety, obese Eye Exam: PERRL/EOMI, eyes nml inspection Ears, Nose, Throat Exam: hearing grossly normal, normal ENT inspection, normal pharynx Neck Exam: normal inspection, non-tender, supple, full range of motion Respiratory Exam: wheezing, No chest tenderness, No respiratory distress, No accessory muscle use (Expiratory and inspiratory), No stridor Cardiovascular/Chest Exam: normal heart sounds Abdominal/Gastrointestinal Exam: soft, normal bowel sounds, No tenderness Rectal Exam: not done Extremity Exam: non-tender Neurologic Exam: alert, oriented x 3, cooperative, 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 QTc is 441) Ordered Tests: Active Orders 24 hr Category Date Time Status CHEST 1 VIEW (PORTABLE) Stat Exams 12/01/24 09:23 Completed Medication Summary Discontinued Medications Generic Name Dose Route Start Last Admin Trade Name Freq PRN Reason Stop Dose Admin Albuterol/Ipratropium 3 ml 12/01/24 09:33 12/01/24 09:38 Ipratropium/Albuterol Sulfate 3 Ml Ampul.Neb IH 12/01/24 09:34 3 ml STAT ONE Administration Albuterol/Ipratropium Confirm 12/01/24 09:34 Ipratropium/Albuterol Sulfate 3 Ml Ampul.Neb Administered 12/01/24 09:35 Dose 3 ml IH .STK-MED ONE Lab/Rad Data: Laboratory Results 12/01/24 Range/Units 09:40 Influenza Type A Ag NEGATIVE (NEGATIVE) Influenza Type B Ag NEGATIVE (NEGATIVE) RSV (PCR) NEGATIVE (NEGATIVE) SARS-CoV-2 (PCR) NEGATIVE (NEGATIVE) - Progress Progress: improved, re-examined Air Movement: good Progress Note: 12/01/24 09:31 My medical decision making and the assignment of low to moderate complexity of this patient's medical issue today is based on review of the patient's past medical history, review of the patient's medication list, review of the patient's drug allergy list, history present illness and physical findings on examination. The workup in this patient includes chest x-ray, viral swabs. Patient states that he is concerned about pneumonia or bronchitis. Differential diagnosis includes but is not limited to upper respiratory infection, bronchitis, pneumonia, COPD exacerbation 12/01/24 09:59 The chest x-ray was interpreted by the radiologist and I reviewed the impression. The impression states new right mild right infrahilar interstitial opacities, pneumonitis versus pneumonia 12/01/24 10:21 I interpreted the patient's laboratory data results. Based on the laboratory data results, the patient has no acute, emergent medical issue. Blood Culture(s) Obtained: No Antibiotics given: Yes Counseled pt/family regarding: lab results, diagnosis, need for follow-up, rad results Medical Desision Making - Diagnostic Testing Diagnostic test were ordered, analyzed, and reviewed by me: Yes Radiological Interpretation: Reviewed by me, Teleradiologist Report - Risk of complications The pt has a mod risk of morbidity or mortality based on: Need for prescription drug management - Departure Departure Disposition: Home Clinical Impression: Right pulmonary infiltrate on CXR Condition: Stable Critical Care Time: No Additional Instructions: Take your medications as prescribed. Call your primary care provider today, 12/01/2024, to make arrangements for follow-up appointment for further evaluation and management and to be seen in the next 3 to 5 days. Monitor your blood sugar closely while taking the steroids. Prescriptions: Benzonatate 200 mg PO TID PRN #10 cap PRN Reason: Cough Prednisone 10 mg [Deltasone 10 mg] 10 mg PO TID #12 tablet Azithromycin 250 mg [Zithromax 250 MG TABLET] 250 mg PO ZPACK #6 tablet
[2024-12-01] MEDS ORDERED: DUONEB 0.5-3 MG/3 ml Neb IH ONE (09:34)
[2024-12-01] MEDS: DUONEB 0.5-3 MG/3 ml Neb IH ONE (09:38)
--- NOTE | 2024-12-01 09:52 | XRAY ---
Indication: Cough. Short of breath. Comparison: February 21, 2024 Portable chest again hyperinflated with new mild right infrahilar interstitial alveolar opacities, pneumonitis/pneumonia. Remaining heart and lungs unremarkable. Bony thorax intact again with osteopenia and degenerative changes.
[2024-12-01 10:18] LABS: INFLUENZA A NEGATIVE (NEGATIVE); INFLUENZA B NEGATIVE (NEGATIVE); RESPIRATORY SYNCTIAL VIRUS NEGATIVE (NEGATIVE); SARS-CoV-2 Xpert Express NEGATIVE (NEGATIVE)
[2024-12-01] MEDS ORDERED: Sterile H2O 10 ml IJ ONE (10:22)
[2024-12-01] MEDS ORDERED: ROCEPHIN 1 GM / 100 ML NaCl 1 GM/100 ML IVPB IV ONE (10:22)
[2024-12-01] MEDS ORDERED: solu-MEDROL ONE (10:22)
[2024-12-01] MEDS: ROCEPHIN 1 GM / 100 ML NaCl 1 GM/100 ML IVPB IV ONE (10:23)
[2024-12-01] MEDS: solu-MEDROL 125 MG, Sterile H2O 10 ml 2 ML IV ONE (10:23)
[2024-12-01 10:40] VITALS: BP 110/63; PULSE 98; RESP 11; O2SAT 95
== END 2024-12-01 10:55 | disposition home or self-care (01) ==
LOC: ED 08:58
DX: R91.8 Other nonspecific abnormal finding of lung field (principal); R05.1 Acute cough; R06.02 Shortness of breath; M79.10 Myalgia, unspecified site; I10 Essential (primary) hypertension; E11.9 Type 2 diabetes mellitus without complications; Z79.52 Long term (current) use of systemic steroids; Z79.84 Long term (current) use of oral hypoglycemic drugs; Z79.899 Other long term (current) drug therapy; Z72.0 Tobacco use
CPT/HCPCS: 0241U; 71045; 94640; 96374; 96375; 99285; 99284; J0696; J2919; A9270-GY

== ENCOUNTER 2024-12-06 12:39 | Emergency (ER) | payer BC ==
[2024-12-06 13:29] VITALS: TEMP 98.4
--- NOTE | 2024-12-06 13:34 | ERPHSYRPT ---
- History of Present Illness Time Seen by Provider: 12/06/24 13:33 Source: patient Exam Limitations: no limitations Patient Subjective Stated Complaint: pt diagnosed with pneumonia on Saturday, has finished antibiotics and steroids and feels worse Triage Nursing Assessment: Pt brought self to the ER, vitals wnl, denies pain, short of breath, pulses normal, skin n/w/d, denies chest pain, wheezes heard, doesn't appear to be in any distress Physician History: This is an obese 54-year-old white male patient who presents to the emergency department with worsening symptoms of shortness of breath. Patient was diagnosed with pneumonia 5 days ago and was placed on a Z-Luis Alberto and steroids which she has completed. Patient states his symptoms are worse. Patient's spouse was diagnosed with the "flu" and was hospitalized and was sent home 2 days ago. Patient has a history of gastroesophageal reflux disease, hypertension, hypothyroidism, and diabetes. During the last visit, 12/01/2024, the radiologist interpreted the chest x-ray as having right side pneumonitis versus pneumonia. Patient states that he used his 's pulse ox at home and the level read 88% on room air. However, on arrival to our emergency department his room air oxygen saturation level is 96 to 97% Timing/Duration: day(s) (5) Severity of Dyspnea-Max: mild Severity of Dyspnea-Current: mild Possible Cause: occasional episodes Modifying Factors: Improves With: activity, exertion Associated Symptoms: cough, No chest pain/discomfort Allergies/Adverse Reactions: No Known Drug Allergies Allergy (Verified 12/06/24 13:28) Home Medications: PANTOPRAZOLE 40 mg Tablet [Protonix 40MG Tablet] 40 mg PO DAILY 03/28/20 [History] Fluticasone Propion/Salmeterol [Advair 100-50 Diskus] 1 each IH DAILY 05/16/22 [History] Levothyroxine Sodium [Euthyrox] 50 mcg PO DAILY 05/16/22 [History] Lisinopril/Hydrochlorothiazide [Lisinopril-Hctz 20-12.5 mg Tab] 1 tab PO DAILY 05/16/22 [History] Metformin HCl 500 mg [Glucophage 500 MG] 1 tab PO BID 05/16/22 [History] Topiramate [Topiramate ER] 200 mg PO BID 05/16/22 [History] Hx Tetanus, Diphtheria Vaccination/Date Given: Yes Hx Influenza Vaccination/Date Given: Yes Hx Pneumococcal Vaccination/Date Given: Yes Travel Risk - International Travel Have you traveled outside of the country in past 3 weeks: No - Emerging Infectious Disease Are you exhibiting symptoms associated with any current EIDs: Yes Symptoms: Cough: New Onset, Shortness of Breath - Review of Systems Constitutional: No Symptoms Eyes: No Symptoms Ears, Nose, & Throat: No Symptoms Respiratory: Cough, Dyspnea on Exertion (RAINEY) Cardiac: No Symptoms Abdominal/Gastrointestinal: No Symptoms Genitourinary Symptoms: No Symptoms Musculoskeletal: No Symptoms Skin: No Symptoms Neurological: No Symptoms Psychological: No Symptoms Endocrine: No Symptoms Hematologic/Lymphatic: No Symptoms Immunological/Allergic: No Symptoms All Other Systems: Reviewed and Negative - Past Medical History Pertinent Past Medical History: Yes Neurological History: No Pertinent History ENT History: No Pertinent History Cardiac History: Hypertension Respiratory History: COPD Endocrine Medical History: Diabetes Type II, Hypothyroidism Musculoskeletal History: No Pertinent History GI Medical History: GERD History: No Pertinent History Psycho-Social History: Anxiety, Depression Male Reproductive Disorders: No Pertinent History - Past Surgical History Past Surgical History: Yes Neuro Surgical History: No Pertinent History Cardiac: No Pertinent History Respiratory: No Pertinent History Gastrointestinal: Appendectomy Genitourinary: No Pertinent History Musculoskeletal: Orthopedic Surgery Male Surgical History: No Pertinent History Other Surgical History: plate under left eye - Social History Smoking Status: Current every day smoker How long have you smoked: YRS Exposure to second hand smoke: Yes Drug Use: none Patient Lives Alone: No - Social Determinants of Health Will the patient participate in the screening: Yes Do you worry about a steady place to live?: No Do you have any problems with any of the following?: No known problems In the past 12 months,have you had to go without utilities?: No Transportation Issues: No Has anyone in your support network made you feel unsafe?: No Have you or anyone in your house had to go without enough: No - Nursing Vital Signs Nursing Vital Signs: Initial Vital Signs Temperature 98.4 F 12/06/24 13:20 Pulse Rate 98 H 12/06/24 13:20 Respiratory Rate 18 12/06/24 13:20 Blood Pressure 118/80 12/06/24 13:20 O2 Sat by Pulse Oximetry 96 12/06/24 13:20 Pain Scale Pain Intensity 0 - Physical Exam General Appearance: no apparent distress, alert, anxiety, obese Eye Exam: PERRL/EOMI, eyes nml inspection Ears, Nose, Throat Exam: hearing grossly normal, normal ENT inspection, normal pharynx Neck Exam: normal inspection, non-tender, supple, full range of motion Respiratory Exam: rhonchi (Side), No chest tenderness, No respiratory distress Cardiovascular/Chest Exam: normal heart sounds, regular rate/rhythm Abdominal/Gastrointestinal Exam: soft, normal bowel sounds, No tenderness Rectal Exam: not done Extremity Exam: non-tender, normal range of motion, normal inspection Neurologic Exam: alert, oriented x 3, cooperative, recruiting and selection consultant II-XII nml as tested, nml cerebellar function, nml station & gait, sensation nml Skin Exam: normal color, warm, dry Lymphatic Exam: No adenopathy SpO2 Interpretation: normal SpO2: 96 O2 Delivery: Room Air - Course Nursing assessment & vital signs reviewed: Yes EKG Interpreted by Me: RATE (88), Sinus Rhythm, NORMAL AXIS, NORMAL INTERVALS, Right Bundle Branch Block, Other (No acute ischemia on today's twelve-lead EKG.) Ordered Tests: Active Orders 24 hr Category Date Time Status EKG-ER Only STAT Care 12/06/24 13:34 Active IV Insertion STAT Care 12/06/24 13:34 Active Pulse Oximetry (ED) STAT Care 12/06/24 13:34 Active CHEST 1 VIEW (PORTABLE) Stat Exams 12/06/24 13:35 Taken BLOOD CULTURE Stat Lab 12/06/24 14:09 Received CBC W DIFF Stat Lab 12/06/24 14:19 Completed CMP Stat Lab 12/06/24 14:19 Completed D-DIMER QUANTITATIVE Stat Lab 12/06/24 14:19 Completed Lactic Acid Stat Lab 12/06/24 13:34 Completed MAGNESIUM Stat Lab 12/06/24 14:19 Completed MONO SCREEN Stat Lab 12/06/24 14:09 Completed NT PRO BNPII Stat Lab 12/06/24 14:19 Completed TROPONIN Q4H Lab 12/06/24 14:19 Completed TROPONIN Q4H Lab 12/06/24 17:45 Ordered TROPONIN Q4H Lab 12/06/24 21:45 Ordered Medication Summary Generic Name Dose Route Start Last Admin Trade Name Freq PRN Reason Stop Dose Admin Ceftriaxone Sodium 1 gm in 100 mls @ 200 mls/hr 12/06/24 15:15 Rocephin 1 Gm / 100 Ml Nacl IV 12/06/24 15:44 STAT ONE Lab/Rad Data: Laboratory Result Diagrams 12/06/24 14:19 12/06/24 14:19 Laboratory Results 12/06/24 12/06/24 12/06/24 Range/Units 14:19 14:19 14:19 WBC (4.23-9.07) x10^3/uL RBC (4.63-6.08) x10^6/uL Hgb (13.7-17.5) g/dL Hct (40.1-51.0) % MCV (79.0-92.2) fL MCH (25.7-32.2) pg MCHC (32.3-36.5) g/dL RDW (11.6-14.4) % Plt Count (163-337) x10^3/uL MPV (9.4-12.4) fL Gran % (34.0-67.9) % Immature Gran % (Auto) (0.001-0.429) % Nucleat RBC Rel Count (0.00-0.2) % Eos # (Auto) (0.04-0.54) x10^3/uL Immature Gran # (Auto) (0.001-0.031) x10^3u/L Absolute Lymphs (auto) (1.32-3.57) x10^3/uL Absolute Monos (auto) (0.30-0.82) x10^3/uL Absolute Nucleated RBC (0.00-0.012) x10^3u/L Lymphocytes % (21.8-53.1) % Monocytes % (5.3-12.2) % Eosinophils % (0.8-7.0) % Basophils % (0.2-1.2) % Absolute Granulocytes (1.78-5.38) x10^3/uL Basophils # (0.01-0.08) x10^3/uL D-Dimer 0.21 (0.0-0.50) mg/L Sodium 139 (135-145) mmol/L Potassium 4.3 (3.5-5.1) mmol/L Chloride 106 (98-107) mmol/L Carbon Dioxide 23 (22-30) mmol/L Anion Gap 13.9 (5-15) MEQ/L BUN 31 H (9-20) mg/dL Creatinine 1.42 H (0.66-1.25) mg/dL Estimated GFR 58.0 ML/MIN Glucose 129 H (74-106) mg/dL Lactic Acid (0.4-2.0) Calcium 9.3 (8.4-10.2) mg/dL Magnesium 2.2 (1.6-2.3) mg/dL Total Bilirubin 0.30 (0.2-1.3) mg/dL AST 49 (17-59) U/L ALT 70 H (0-50) U/L Alkaline Phosphatase 69 (38-126) U/L Troponin I < 0.012 (0.000-0.033) ng/mL NT-Pro-B Natriuret Pep 73.9 (<300) pg/mL Serum Total Protein 6.7 (6.3-8.2) g/dL Albumin 4.1 (3.5-5.0) g/dL Monoscreen (NEGATIVE) Influenza Type A Ag (NEGATIVE) Influenza Type B Ag (NEGATIVE) RSV (PCR) (NEGATIVE) SARS-CoV-2 (PCR) (NEGATIVE) 12/06/24 12/06/24 12/06/24 Range/Units 14:19 14:09 14:09 WBC 8.1 (4.23-9.07) x10^3/uL RBC 4.52 L (4.63-6.08) x10^6/uL Hgb 14.5 (13.7-17.5) g/dL Hct 44.4 (40.1-51.0) % MCV 98.2 H (79.0-92.2) fL MCH 32.1 (25.7-32.2) pg MCHC 32.7 (32.3-36.5) g/dL RDW 13.6 (11.6-14.4) % Plt Count 293 (163-337) x10^3/uL MPV 10.1 (9.4-12.4) fL Gran % 54.8 (34.0-67.9) % Immature Gran % (Auto) 0.6 H (0.001-0.429) % Nucleat RBC Rel Count 0.0 (0.00-0.2) % Eos # (Auto) 0.19 (0.04-0.54) x10^3/uL Immature Gran # (Auto) 0.05 H (0.001-0.031) x10^3u/L Absolute Lymphs (auto) 2.55 (1.32-3.57) x10^3/uL Absolute Monos (auto) 0.84 H (0.30-0.82) x10^3/uL Absolute Nucleated RBC 0.00 (0.00-0.012) x10^3u/L Lymphocytes % 31.4 (21.8-53.1) % Monocytes % 10.4 (5.3-12.2) % Eosinophils % 2.3 (0.8-7.0) % Basophils % 0.5 (0.2-1.2) % Absolute Granulocytes 4.44 (1.78-5.38) x10^3/uL Basophils # 0.04 (0.01-0.08) x10^3/uL D-Dimer (0.0-0.50) mg/L Sodium (135-145) mmol/L Potassium (3.5-5.1) mmol/L Chloride (98-107) mmol/L Carbon Dioxide (22-30) mmol/L Anion Gap (5-15) MEQ/L BUN (9-20) mg/dL Creatinine (0.66-1.25) mg/dL Estimated GFR ML/MIN Glucose (74-106) mg/dL Lactic Acid (0.4-2.0) Calcium (8.4-10.2) mg/dL Magnesium (1.6-2.3) mg/dL Total Bilirubin (0.2-1.3) mg/dL AST (17-59) U/L ALT (0-50) U/L Alkaline Phosphatase (38-126) U/L Troponin I (0.000-0.033) ng/mL NT-Pro-B Natriuret Pep (<300) pg/mL Serum Total Protein (6.3-8.2) g/dL Albumin (3.5-5.0) g/dL Monoscreen POSITIVE (NEGATIVE) Influenza Type A Ag NEGATIVE (NEGATIVE) Influenza Type B Ag NEGATIVE (NEGATIVE) RSV (PCR) NEGATIVE (NEGATIVE) SARS-CoV-2 (PCR) NEGATIVE (NEGATIVE) 12/06/24 Range/Units 13:34 WBC (4.23-9.07) x10^3/uL RBC (4.63-6.08) x10^6/uL Hgb (13.7-17.5) g/dL Hct (40.1-51.0) % MCV (79.0-92.2) fL MCH (25.7-32.2) pg MCHC (32.3-36.5) g/dL RDW (11.6-14.4) % Plt Count (163-337) x10^3/uL MPV (9.4-12.4) fL Gran % (34.0-67.9) % Immature Gran % (Auto) (0.001-0.429) % Nucleat RBC Rel Count (0.00-0.2) % Eos # (Auto) (0.04-0.54) x10^3/uL Immature Gran # (Auto) (0.001-0.031) x10^3u/L Absolute Lymphs (auto) (1.32-3.57) x10^3/uL Absolute Monos (auto) (0.30-0.82) x10^3/uL Absolute Nucleated RBC (0.00-0.012) x10^3u/L Lymphocytes % (21.8-53.1) % Monocytes % (5.3-12.2) % Eosinophils % (0.8-7.0) % Basophils % (0.2-1.2) % Absolute Granulocytes (1.78-5.38) x10^3/uL Basophils # (0.01-0.08) x10^3/uL D-Dimer (0.0-0.50) mg/L Sodium (135-145) mmol/L Potassium (3.5-5.1) mmol/L Chloride (98-107) mmol/L Carbon Dioxide (22-30) mmol/L Anion Gap (5-15) MEQ/L BUN (9-20) mg/dL Creatinine (0.66-1.25) mg/dL Estimated GFR ML/MIN Glucose (74-106) mg/dL Lactic Acid 1.3 (0.4-2.0) Calcium (8.4-10.2) mg/dL Magnesium (1.6-2.3) mg/dL Total Bilirubin (0.2-1.3) mg/dL AST (17-59) U/L ALT (0-50) U/L Alkaline Phosphatase (38-126) U/L Troponin I (0.000-0.033) ng/mL NT-Pro-B Natriuret Pep (<300) pg/mL Serum Total Protein (6.3-8.2) g/dL Albumin (3.5-5.0) g/dL Monoscreen (NEGATIVE) Influenza Type A Ag (NEGATIVE) Influenza Type B Ag (NEGATIVE) RSV (PCR) (NEGATIVE) SARS-CoV-2 (PCR) (NEGATIVE) - Progress Progress: improved, re-examined Air Movement: fair Progress Note: 12/06/24 13:50 My medical decision making and the assignment of moderate complexity to this patient's medical issue today is based on review of the patient's past medical history, review the patient's medication list, reviewed patient drug allergy list, history present illness and physical findings on examination. The workup in this patient includes placement of intravenous line, CBC, CMP, lactic acid level, BNP, D-dimer level, twelve-lead EKG, troponin level, chest x-ray, viral swabs and monotest. Differential diagnosis includes but is not limited to viral illness, pneumonia, CHF, COPD, arrhythmia, myocardial infarction 12/06/24 15:17 I interpreted the patient's laboratory data results. Based on the laboratory data results, the patient test positive for mononucleosis. I interpreted the preliminary report of the patient's chest x-ray. He has persistent right lower lobe infiltrate. His troponin and D-dimer are normal and the remainder viral studies are also normal. We will provide him with Rocephin intravenous 1 g and remotely send a prescription for cefuroxime to his pharmacy as well as hydrocodone elixir. Blood Culture(s) Obtained: No Antibiotics given: Yes Counseled pt/family regarding: lab results, diagnosis, need for follow-up, rad results Medical Desision Making - Diagnostic Testing Diagnostic test were ordered, analyzed, and reviewed by me: Yes Radiological Interpretation: Interpreted by me, Teleradiologist Report - Risk of complications The pt has a mod risk of morbidity or mortality based on: Need for prescription drug management - Departure Departure Disposition: Home Clinical Impression: Right lower lobe pulmonary infiltrate, Mononucleosis Condition: Stable Critical Care Time: No Referrals: DOCTOR,NO FAMILY [NON-STAFF PHY W/O PRIVILEGES] - Follow up/PCP as directed Additional Instructions: Drink plenty of clear liquids. Take your antibiotics as prescribed. Call your primary care provider tomorrow, 12/07/2024, to make arrangements for follow-up appointment for further evaluation management. Prescriptions: cefuroxime axetiL [Cefuroxime] 500 mg PO BID #10 tablet Hydrocodone/Acetaminophen [Hydrocodone-Acetamn 7.5-325/15] 10 ml PO Q8H PRN #120 ml MDD 30 ml PRN Reason: Cough
[2024-12-06 14:16] LABS: Absolute Neutrophil Ct (ANC) 4.44 x10^3/uL (1.78-5.38); BASOPHIL % 0.5 % (0.2-1.2); Basophil (Absolute #) 0.04 x10^3/uL (0.01-0.08); Eosinophil % 2.3 % (0.8-7.0); Eosinophil (Absolute #) 0.19 x10^3/uL (0.04-0.54); Hematocrit 44.4 % (40.1-51.0); Hemoglobin 14.5 g/dL (13.7-17.5); IMMATURE GRAN # 0.05 x10^3u/L (0.001-0.031); IMMATURE GRAN % 0.6 % (0.001-0.429); Lymphocyte (Absolute #) 2.55 x10^3/uL (1.32-3.57); Lymphocytes % 31.4 % (21.8-53.1); Mean Cell Volume 98.2 fL (79.0-92.2); Mean Corpuscular Hemoglobin 32.1 pg (25.7-32.2); Mean Corpuscular Hgb Concent. 32.7 g/dL (32.3-36.5); Mean Platelet Volume 10.1 fL (9.4-12.4); Monocyte (Absolute #) 0.84 x10^3/uL (0.30-0.82); Monocytes % 10.4 % (5.3-12.2); Neutrophil % 54.8 % (34.0-67.9); Platelet Count 293 x10^3/uL (163-337); Red Blood Count 4.52 x10^6/uL (4.63-6.08); Red Cell Distribution Width 13.6 % (11.6-14.4); White Blood Count 8.1 x10^3/uL (4.23-9.07)
[2024-12-06 14:38] LABS: ALBUMIN 4.1 g/dL (3.5-5.0); ANION GAP 13.9 MEQ/L (5-15); BILIRUBIN,TOTAL 0.3 mg/dL (0.2-1.3); Calcium 9.3 mg/dL (8.4-10.2); Creatinine 1 1.42 mg/dL (0.66-1.25); MAGNESIUM 2.2 mg/dL (1.6-2.3); NT PRO BNPII 73.9 pg/mL (<300); Potassium 4.3 mmol/L (3.5-5.1); Total Protein 6.7 g/dL (6.3-8.2)
[2024-12-06 14:53] LABS: INFLUENZA A NEGATIVE (NEGATIVE); INFLUENZA B NEGATIVE (NEGATIVE); RESPIRATORY SYNCTIAL VIRUS NEGATIVE (NEGATIVE); SARS-CoV-2 Xpert Express NEGATIVE (NEGATIVE)
[2024-12-06 15:17] VITALS: O2SAT 96
[2024-12-06] MEDS ORDERED: ROCEPHIN 1 GM / 100 ML NaCl 1 GM/100 ML IVPB IV ONE (15:36)
[2024-12-06] MEDS: ROCEPHIN 1 GM / 100 ML NaCl 1 GM/100 ML IVPB IV ONE (15:37)
[2024-12-06 16:05] VITALS: BP 109/74; PULSE 83; RESP 19
--- NOTE | 2024-12-06 19:30 | XRAY ---
Indication: Short of breath. Comparison: Dec 01, 2024 Portable chest again demonstrates subtle right infrahilar interstitial alveolar opacities without consolidation/large effusion. Remaining heart and left lung unremarkable. No new cardiopulmonary abnormalities.
== END 2024-12-06 16:02 | disposition home or self-care (01) ==
LOC: ED 12:39
DX: B27.90 Infectious mononucleosis, unspecified without complication (principal); R91.8 Other nonspecific abnormal finding of lung field; R06.02 Shortness of breath; I10 Essential (primary) hypertension; E11.9 Type 2 diabetes mellitus without complications; Z79.891 Long term (current) use of opiate analgesic; Z79.84 Long term (current) use of oral hypoglycemic drugs; Z79.899 Other long term (current) drug therapy; Z72.0 Tobacco use
CPT/HCPCS: 0241U; 36415; 71045; 80053; 83605; 83735; 83880; 84484; 85025; 85379; 86308; 87040; 93005; 94760; 96374; 99285; 99284; J0696